=== PATIENT | male | born 1965 | race African-American/Black ===

== ENCOUNTER 2017-01-03 02:56 | Emergency (ER) | payer MEDICAID ==
[~2017-01-03] VITALS: Ht 190.5 cm; Wt 109.0 kg
[2017-01-03] MEDS ORDERED: MECLIZINE 25MG TABLET PO ONE (08:30)
[2017-01-03 09:00] VITALS: BP 122/86
== END 2017-01-03 09:02 | disposition home or self-care (01) ==
LOC: ER 05:03
DX: H81.10 Benign paroxysmal vertigo, unspecified ear (principal); Z90.49 Acquired absence of other specified parts of digestive tract
CPT/HCPCS: 99283; J8597

== ENCOUNTER 2018-06-04 01:37 | Emergency (ER) | payer MEDICAID ==
[~2018-06-04] VITALS: Ht 190.5 cm; Wt 100.0 kg
[2018-06-04] MEDS ORDERED: MECLIZINE 25MG TABLET PO ONE (06:45)
[2018-06-04 08:34] VITALS: BP 146/80
== END 2018-06-04 08:35 | disposition home or self-care (01) ==
LOC: ER 01:37
DX: S09.8XXA Other specified injuries of head, initial encounter (principal); R42 Dizziness and giddiness; W22.8XXA Striking against or struck by other objects, initial encounter; Y93.89 Activity, other specified; Y92.89 Other specified places as the place of occurrence of the external cause
CPT/HCPCS: 70450; 99284; J8597

== ENCOUNTER 2018-09-11 17:36 | Emergency (ER) | payer MEDICAID ==
[~2018-09-11] VITALS: Ht 190.5 cm; Wt 101.0 kg
[2018-09-11 20:45] LABS: BASOPHILS % 0.9 % (0.0-2.0); EOSINOPHILS % 2.2 % (0.0-5.0); HEMATOCRIT. 42.4 % (42.0-52.0); HEMOGLOBIN. 14.8 g/dL (14.0-18.0); LYMPHOCYTES % 43.2 % (20.0-50.0); MEAN CORPUSCULAR HEMOGLOBIN 31.5 pg (28.0-32.0); MEAN CORPUSCULAR VOLUME 90.5 fL (80.0-94.0); MONOCYTES % 7.7 % (2.0-8.0); PLATELET 188 x1000/uL (130-400); RED BLOOD CELL COUNT 4.68 mill/uL (4.7-6.1); RED CELL DISTRIBUTION WIDTH 12.7 % (11.6-14.6)
[2018-09-11] MEDS ORDERED: IBUPROFEN 400MG TABLET PO ONE (20:45)
[2018-09-11 20:49] LABS: CHLORIDE 107 mEq/L (98-107)
[2018-09-11 22:23] LABS: CLARITY URINE CLEAR (CLEAR); COLOR URINE YELLOW (YELLOW); KETONES URINE TRACE (NEGATIVE); LEUKOCYTE ESTERASE URINE NEGATIVE (NEGATIVE); NITRITE URINE NEGATIVE (NEGATIVE); OCCULT BLOOD URINE NEGATIVE (NEGATIVE); PH URINE 5.5 (4.5-8.0); PROTEIN URINE NEGATIVE (NEGATIVE); SPECIFIC GRAVITY URINE 1.034 (1.005-1.030)
[2018-09-12 01:00] VITALS: BP 121/75
== END 2018-09-12 01:20 | disposition home or self-care (01) ==
LOC: ER 17:36
DX: K85.90 Acute pancreatitis without necrosis or infection, unspecified (principal); R10.32 Left lower quadrant pain; R42 Dizziness and giddiness; N50.812 Left testicular pain; F12.10 Cannabis abuse, uncomplicated; Z90.49 Acquired absence of other specified parts of digestive tract; Z87.09 Personal history of other diseases of the respiratory system
CPT/HCPCS: 36415; 74176; 76870; 83605; 93976; 99284

== ENCOUNTER 2019-03-10 07:45 | Emergency (ER) | payer OTHER, MEDICAID ==
[~2019-03-10] VITALS: Ht 190.5 cm; Wt 104.0 kg
[2019-03-10 08:42] VITALS: BP 121/74
== END 2019-03-10 08:43 | disposition home or self-care (01) ==
LOC: ER 07:45
DX: S60.463A Insect bite (nonvenomous) of left middle finger, initial encounter (principal); F12.10 Cannabis abuse, uncomplicated; Z90.49 Acquired absence of other specified parts of digestive tract; W57.XXXA Bitten or stung by nonvenomous insect and other nonvenomous arthropods, initial encounter; Y93.89 Activity, other specified; Y92.89 Other specified places as the place of occurrence of the external cause; Y99.8 Other external cause status
CPT/HCPCS: 99281

== ENCOUNTER 2021-06-27 11:07 | Emergency (ER) | payer OTHER, MEDICAID ==
[~2021-06-27] VITALS: Ht 190.5 cm; Wt 102.0 kg
[2021-06-27] MEDS ORDERED: PREDNISONE 20MG TABLET PO ONE (13:15)
[2021-06-27] MEDS ORDERED: IBUP-2030 MT (13:15)
[2021-06-27] MEDS ORDERED: P20 MT (13:15)
[2021-06-27 13:23] VITALS: BP 126/75
== END 2021-06-27 13:25 | disposition home or self-care (01) ==
LOC: ER 11:07
DX: J02.9 Acute pharyngitis, unspecified (principal); Z20.822 Contact with and (suspected) exposure to COVID-19; Z90.49 Acquired absence of other specified parts of digestive tract; F12.10 Cannabis abuse, uncomplicated
CPT/HCPCS: 87070; 87426; 87430; 99283; J7512

== ENCOUNTER 2021-07-07 07:15 | Emergency (ER) | payer OTHER, MEDICAID ==
[~2021-07-07] VITALS: Ht 190.5 cm; Wt 102.0 kg
[~2021-07-07 07:15] MED LIST: IBUP-2030 MT; P20 MT
[2021-07-07 08:42] VITALS: BP 126/84
== END 2021-07-07 08:53 | disposition home or self-care (01) ==
LOC: ER 07:15
DX: J02.9 Acute pharyngitis, unspecified (principal); F12.10 Cannabis abuse, uncomplicated; Z90.49 Acquired absence of other specified parts of digestive tract
CPT/HCPCS: 99281